=== PATIENT | female | born 1960 | race Caucasian/White ===

== ENCOUNTER 2017-10-18 23:04 | Emergency (ER) | payer OTHER ==
[2017-10-18 23:11] VITALS: PULSE 77; TEMP 98.7; BMI 23.6
[2017-10-18] MEDS ORDERED: DEXAMETHASONE SOD PHOSPHATE 10 MG/1 ML VIAL IM ONE (23:13)
[2017-10-18] MEDS ORDERED: DEXAMETHASONE SOD PHOSPHATE 10 MG/1 ML VIAL ONE (23:14)
--- NOTE | 2017-10-18 23:20 | PDOC ---
History of Present Illness - General Chief Complaint: Allergic Reaction Stated Complaint: ALLERGIC REACTION Time Seen by Provider: 10/18/17 23:12 - History of Present Illness Initial Comments: 10/19/17 20:41 while sitting on plane near dog, felt throat swelling up. took antihistamines without relief. no fevr/ chills. no uri symptoms pmh: allergies fhx: noncotnrib ros: reveiwed and otherwise neagtive o/e nad no rash mmm uvula mildly edematous no stridor, no wheeze a/p mild allg rxn corticosteroids antihistamines Past History - Past Medical History Allergies/Adverse Reactions: Allergies Allergy/AdvReac Type Severity Reaction Status Date / Time aspirin Allergy Severe Verified 10/18/17 23:05 leuprolide acetate Allergy Severe Verified 10/18/17 23:05 [From Lupron] NSAIDS (Non-Steroidal Allergy Severe Verified 10/18/17 23:05 Anti-Inflamma IV DYE Allergy Severe Uncoded 10/18/17 23:05 Home Medications: Ambulatory Orders Estradiol/Levonorgestrel [Climara Pro Patch] 1 each TD WEEKLY 01/20/14 Loratadine [Claritin -] 10 mg PO HS 01/20/14 COPD: No - Suicide/Smoking/Psychosocial Hx Smoking History: Never smoked Hx Alcohol Use: No Drug/Substance Use Hx: No Substance Use Type: None *Physical Exam - Vital Signs Last Vital Signs Temp Pulse Resp BP Pulse Ox 98.7 F 77 18 157/97 99 10/18/17 23:06 10/18/17 23:06 10/18/17 23:06 10/18/17 23:06 10/18/17 23:06 *DC/Admit/Observation/Transfer Diagnosis at time of Disposition: Allergic reaction Qualifiers: Encounter type: initial encounter Qualified Code(s): T78.40XA - Allergy, unspecified, initial encounter - Discharge Dispostion Disposition: HOME Condition at time of disposition: Good - Referrals - Patient Instructions Printed Discharge Instructions: DI for General Allergic Reactions - Post Discharge Activity
[2017-10-19 00:12] VITALS: BP 122/72
== END 2017-10-19 00:24 | disposition home or self-care (01) ==
LOC: FER 23:04
PROC: 3E023GC Introduction of Other Therapeutic Substance into Muscle, Percutaneous Approach (ICD-10-PCS; principal; 2017-10-18)
DX: T78.40XA Allergy, unspecified, initial encounter (principal)
CPT/HCPCS: 99282-25; J1100

== ENCOUNTER 2017-11-02 16:40 | Emergency (ER) | payer OTHER ==
[2017-11-02] MEDS ORDERED: methylPREDNISolone NA SUCC 40 MG/1 ML VIAL IVPUSH ONE (16:45)
--- NOTE | 2017-11-02 16:45 | PDOC ---
History of Present Illness - General History Source: Patient Exam Limitations: No Limitations - History of Present Illness Initial Comments: 11/02/17 16:57 The patient is a 57 year old female, with a significant past medical history of idiopathic anaphylaxis ([id number]), who presents to the emergency department with, an allergic reaction. She reports using her Epipen prior to arrival. This morning at 8:00 am she reports taking 10 mg of Prednisone, 20 mg of Pepcid , and Benadryl. At 1:00 pm she reports taking 5mg of Prednisone and 10 mg of Prednisone at 3:00 pm. She describes her symptoms as her palate shutting down. Her initial allergic reaction was after being around a dog, however, she reports the symptoms to be unlike her normal dog allergy. As per patient, she has had 4 allergic reactions within two weeks which she has had to go to the ED from unknown causes. She reports seeing both an ENT and supervisor pairing and inspecting this week. She denies recent fevers, chills, headache or dizziness. She denies recent nausea, vomit, diarrhea or constipation. She denies recent dysuria, frequency, urgency or hematuria. She denies recent chest pain or shortness of breath. <Manuel Ji - Last Filed: 11/02/17 17:22> <Ronnie Rockwell - Last Filed: 11/02/17 17:38> - General Chief Complaint: Allergic Reaction Stated Complaint: ALLERGIC REACTION Time Seen by Provider: 11/02/17 16:45 Past History <Manuel Ji - Last Filed: 11/02/17 17:22> - Past Medical History COPD: No - Suicide/Smoking/Psychosocial Hx Smoking History: Never smoked Hx Alcohol Use: No Drug/Substance Use Hx: No Substance Use Type: None <Ronnie Rockwell - Last Filed: 11/02/17 17:38> - Past Medical History Allergies/Adverse Reactions: Allergies Allergy/AdvReac Type Severity Reaction Status Date / Time aspirin Allergy Severe Verified 10/18/17 23:05 leuprolide acetate Allergy Severe Verified 10/18/17 23:05 [From Lupron] NSAIDS (Non-Steroidal Allergy Severe Verified 10/18/17 23:05 Anti-Inflamma IV DYE Allergy Severe Uncoded 10/18/17 23:05 Home Medications: Ambulatory Orders Loratadine [Claritin -] 10 mg PO HS 01/20/14 Albuterol Sulfate Inhaler - [Ventolin Hfa Inhaler -] 2 inh PO Q6H 11/02/17 Diphenhydramine HCl [Benadryl -] 25 mg PO BID 11/02/17 Diphenhydramine [Benadryl -] 50 mg PO ASDIR PRN 11/02/17 EPINEPHrine (EPI-PEN 0.3MG) [Epipen 0.3MG -] 0.3 mg IM ASDIR 11/02/17 Estrogens, Conjugated [Premarin] 0.3 mg TP WEEKLY 11/02/17 Famotidine [Pepcid] 40 mg PO DAILY 11/02/17 Nettle [place] 600 gm MC DAILY 11/02/17 Prednisone 10 mg PO ASDIR 11/02/17 Progesterone, Micronized [Progesterone] 100 mg PO DAILY 11/02/17 Quercetin Dihydrate 600 gm PO DAILY 11/02/17 Review of Systems - Review of Systems Able to Perform ROS?: Yes All Other Systems: Reviewed and Negative <Manuel Ji - Last Filed: 11/02/17 17:22> *Physical Exam - Physical Exam Comments: 11/02/17 16:59 + General Appearance: Yes: (+) Anxious. Appropriately Dressed, Nourished. No: Alcohol on Breath, Intoxicated, Cachetic, Obese, Thin, Other HEENT: positive: Normal ENT Inspection, Normal Voice, Pharynx Normal. negative : Pale Conjunctivae, Muffled/Hoarse voice, Hearing Decreased, Hearing Grossly Normal, Other Neck: positive: Trachea midline, Normal Thyroid, Supple. negative: Tender, Rigid, Carotid bruit, Decreased range of motion, Stridor, Lymphadenopathy (R), Lymphadenopathy (L), Rigidity, Tender lateral, Tender midline, Thyromegaly, Other Respiratory/Chest: positive: Lungs Clear, Normal Breath Sounds. negative: Respiratory Distress, Labored Respiration, Rapid RR, Decreased Breath Sounds, Paradoxal Breathing, Crackles, Rales, Rhonchi, Stridor, Wheezing, Dullness, Hyperresonant, Plerual Rub, Other Cardiovascular: positive: Regular Rate, Regular Rhythm, S1, S2. negative: Edema , JVD, Murmur, Bradycardia, Tachycardia, Diastolic Murmur, Systolic Murmur, Gallop/S3, Gallop/S4, Irregularly Irregular, Irregular, Other Integumentary: positive: Normal Color, Dry, Warm. negative: Cyanotic, Erythema , Jaundice, Mottled, Pale, Cold, Clammy, Diaphoresis, Moist, Swelling, Ecchymosis, Bruising, Other Neurologic: positive: Fully Oriented, Alert, Normal Mood/Affect, Normal Response. negative: Responsive, EOM Palsy, Facial Droop, Confused, Disoriented , Depressed Affect, Other <Manuel Ji - Last Filed: 11/02/17 17:22> Progress Note - Progress Note Progress Note: Pt having an allergic reaction, no rash. Speaking full sentences, took Epi pen at home Benadryl, SoluMedrol and Pepcid given. Patient is feeling much better. Will discharge home, has EpiPens at home. If worsen return to ER <Ronnie Rockwell - Last Filed: 11/02/17 17:38> *DC/Admit/Observation/Transfer - Attestations Scribe Attestion: 11/02/17 17:11 Documentation prepared by Manuel Ji, acting as faculty i on call medical assistant for Ronnie Rockwell MD. <Manuel Ji - Last Filed: 11/02/17 17:22> - Discharge Dispostion Admit: No <Ronnie Rockwell - Last Filed: 11/02/17 17:38> Diagnosis at time of Disposition: Allergic reaction Qualifiers: Encounter type: initial encounter Qualified Code(s): T78.40XA - Allergy, unspecified, initial encounter - Discharge Dispostion Disposition: HOME Condition at time of disposition: Good - Patient Instructions Printed Discharge Instructions: Anaphylaxis Additional Instructions: Continue current treatment If worsen return to ER
[2017-11-02] MEDS ORDERED: FAMOTIDINE IV 20 MG/12 ML VIAL IVPUSH ONE (16:47)
[2017-11-02 17:24] VITALS: TEMP 98.4; BMI 23.6
[2017-11-02 17:25] VITALS: BP 120/63; PULSE 75
== END 2017-11-02 18:47 | disposition home or self-care (01) ==
LOC: FER 16:40
PROC: 3E033GC Introduction of Other Therapeutic Substance into Peripheral Vein, Percutaneous Approach (ICD-10-PCS; principal; 2017-11-02)
DX: T78.40XA Allergy, unspecified, initial encounter (principal)
CPT/HCPCS: 99283-25

== ENCOUNTER 2017-11-03 00:05 | Emergency (ER) | payer OTHER ==
[2017-11-03 00:12] VITALS: BP 151/89; PULSE 93; TEMP 97.8; BMI 51.7
--- NOTE | 2017-11-03 00:35 | PDOC ---
History of Present Illness - General Chief Complaint: Allergic Reaction Stated Complaint: DIFFICULTY BREATHING Time Seen by Provider: 11/03/17 00:35 Past History - Past Medical History Allergies/Adverse Reactions: Allergies Allergy/AdvReac Type Severity Reaction Status Date / Time aspirin Allergy Severe Verified 11/03/17 00:07 leuprolide acetate Allergy Severe Verified 11/03/17 00:07 [From Lupron] NSAIDS (Non-Steroidal Allergy Severe Verified 11/03/17 00:07 Anti-Inflamma IV DYE Allergy Severe Uncoded 10/18/17 23:05 Home Medications: Ambulatory Orders Loratadine [Claritin -] 10 mg PO HS 01/20/14 Albuterol Sulfate Inhaler - [Ventolin Hfa Inhaler -] 2 inh PO Q6H 11/02/17 Diphenhydramine HCl [Benadryl -] 25 mg PO BID 11/02/17 Diphenhydramine [Benadryl -] 50 mg PO ASDIR PRN 11/02/17 EPINEPHrine (EPI-PEN 0.3MG) [Epipen 0.3MG -] 0.3 mg IM ASDIR 11/02/17 Estrogens, Conjugated [Premarin] 0.3 mg TP WEEKLY 11/02/17 Famotidine [Pepcid] 40 mg PO DAILY 11/02/17 Nettle [place] 600 gm MC DAILY 11/02/17 Prednisone 10 mg PO ASDIR 11/02/17 Progesterone, Micronized [Progesterone] 100 mg PO DAILY 11/02/17 Quercetin Dihydrate 600 gm PO DAILY 11/02/17 COPD: No - Suicide/Smoking/Psychosocial Hx Smoking History: Never smoked Have you smoked in the past 12 months: No Information on smoking cessation initiated: No Hx Alcohol Use: No Drug/Substance Use Hx: No Substance Use Type: None *Physical Exam - Vital Signs Last Vital Signs Temp Pulse Resp BP Pulse Ox 97.8 F 93 H 20 151/89 100 11/03/17 00:07 11/03/17 00:07 11/03/17 00:07 11/03/17 00:07 11/03/17 00:07 - Physical Exam General Appearance: Yes: Nourished, Appropriately Dressed. No: Apparent Distress HEENT: positive: EOMI, TK, Normal ENT Inspection, Symmetrical, TMs Normal, Pharynx Normal, Muffled/Hoarse voice Neck: positive: Trachea midline, Normal Thyroid, Supple Respiratory/Chest: positive: Lungs Clear, Normal Breath Sounds. negative: Respiratory Distress, Accessory Muscle Use Cardiovascular: positive: Regular Rhythm, Regular Rate, S1, S2 Gastrointestinal/Abdominal: positive: Normal Bowel Sounds, Tender, Flat, Soft, Organomegaly Musculoskeletal: positive: Normal Inspection. negative: CVA Tenderness Extremity: positive: Normal Capillary Refill, Normal Inspection, Normal Range of Motion Integumentary: positive: Normal Color, Dry, Warm Neurologic: positive: tone cabinet assembler II-XII NML intact, Fully Oriented, Alert, Normal Mood/ Affect, Normal Response, Motor Strength 5/5, Other (pt is slightly anxious.) ED Treatment Course - RADIOLOGY Radiology Studies Ordered: Category Date Time Status SOFT TISSUE NECK CT W/O CONTR [CT] Stat CT Scan 11/03/17 00:30 Ordered Medical Decision Making - Medical Decision Making 11/03/17 01:15 Pt comes with swelling in her throat. SHe states that she was here earlier in the day for "idiopathic angioedema" that is being treated with steroids at present 10-20mg prednisone daily. Despite this she had a feeling that her throat was closing today and she was in the ER and improved with benadryl and prednisone given in the ER. Pt took her epipen earlier today en route to here. Now she returns. She again used 25mg benadryl; 11/03/17 01:29 Patient Name: MILLIE WEBBER THIS IS A PRELIMINARY REPORT FROM [facility] DATE OF SERVICE: 2017-11-03 00:20:18 IMAGES: [id number] EXAM: CT NECK WITHOUT CONTRAST No abscess or focal fluid collection. No obvious mass, but evaluation limited by noncontrast technique. Unremarkable tonsillar fossa, epiglottis, thyroid gland, and parotid and submandibular glands. Visualized paranasal sinuses and mastoid air cells clear. Hemangioma T1. THIS DOCUMENT HAS BEEN ELECTRONICALLY SIGNED *DC/Admit/Observation/Transfer Diagnosis at time of Disposition: Sensation of swollen throat - Discharge Dispostion Disposition: HOME Condition at time of disposition: Stable Admit: No - Referrals - Patient Instructions Printed Discharge Instructions: Tips on Coping with Mouth, Gum, and Throat Problems Related to Radiation Th, DI for Angioedema, Nasal Filters May Improve Seasonal Allergy Symptoms - Post Discharge Activity
== END 2017-11-03 02:16 | disposition home or self-care (01) ==
LOC: FER 00:05
PROC: 3E033GC Introduction of Other Therapeutic Substance into Peripheral Vein, Percutaneous Approach (ICD-10-PCS; principal; 2017-11-03)
DX: R09.89 Other specified symptoms and signs involving the circulatory and respiratory systems (principal)
CPT/HCPCS: 70490-TC; 99281-25

== ENCOUNTER 2017-11-04 20:47 | Emergency (ER) | payer OTHER ==
[2017-11-04 21:06] VITALS: BP 119/73; PULSE 94; TEMP 98.2; BMI 23.5
--- NOTE | 2017-11-04 21:18 | PDOC ---
History of Present Illness - General History Source: Patient Exam Limitations: No Limitations - History of Present Illness Initial Comments: 11/04/17 21:33 The patient is a 57 year old female with a significant PMH of idiopathic anaphylaxis ([id number]) and fibromyalgia who presents to the emergency department with an allergic reaction. She reports using her Epipen prior to arrival. The patient states she ate salmon last night and felt like it was stuck in the back of the throat that resolved about 30 minutes later after burping. The patient notes she only ate soup, protein shakes, and water today as she felt anxious about experiencing this sensation again. The patient also reports taking Prednisone, Pepcid, and Benadryl with minimal relief. The patient notes she has been experiencing her palate was shutting down over the past few days but states that today she had the sensation there was 'something stuck in the back of her throat.' The patient also endorses nausea and itchiness to her palate. Her initial allergic reaction was on 10/18/17 after being near a dog but states her symptoms were unlike her typical drug allergy. Of note, the patient reports she has had 5 allergic reactions within two weeks which she has had to go to the ED. She also reports seeing an ENT 5 days ago who performed a laryngoscopy and told her she had some inflammation in the throat but could not determine the cause. The patient also states she saw an facility specialist yesterday. The patient denies chest pain, shortness of breath, headache and dizziness. Denies fever, chills, vomit, diarrhea and constipation. Denies dysuria, frequency, urgency and hematuria. Allergies: Aspirin, leuprolide acetate Past surgical history: None reported. Social history: No reported alcohol, drug or cigarette use. <Sirisha Sanders - Last Filed: 11/04/17 21:31> <Marina Angela - Last Filed: 11/05/17 01:31> - General Chief Complaint: Allergic Reaction Stated Complaint: ALLERGIC REACTION Time Seen by Provider: 11/04/17 21:18 Past History <Sirisha Sanders - Last Filed: 11/04/17 21:31> - Past Medical History COPD: No - Suicide/Smoking/Psychosocial Hx Smoking History: Never smoked Have you smoked in the past 12 months: No Hx Alcohol Use: No Drug/Substance Use Hx: No Substance Use Type: None <Marina Angela - Last Filed: 11/05/17 01:31> - Past Medical History Allergies/Adverse Reactions: Allergies Allergy/AdvReac Type Severity Reaction Status Date / Time aspirin Allergy Severe Verified 11/03/17 00:07 leuprolide acetate Allergy Severe Verified 11/03/17 00:07 [From Lupron] NSAIDS (Non-Steroidal Allergy Severe Verified 11/03/17 00:07 Anti-Inflamma IV DYE Allergy Severe Uncoded 10/18/17 23:05 Home Medications: Ambulatory Orders Loratadine [Claritin -] 10 mg PO HS 01/20/14 Albuterol Sulfate Inhaler - [Ventolin Hfa Inhaler -] 2 inh PO Q6H 11/02/17 Diphenhydramine HCl [Benadryl -] 25 mg PO BID 11/02/17 Diphenhydramine [Benadryl -] 50 mg PO ASDIR PRN 11/02/17 EPINEPHrine (EPI-PEN 0.3MG) [Epipen 0.3MG -] 0.3 mg IM ASDIR 11/02/17 Estrogens, Conjugated [Premarin] 0.3 mg TP WEEKLY 11/02/17 Famotidine [Pepcid] 40 mg PO DAILY 11/02/17 Nettle [place] 600 gm MC DAILY 11/02/17 Prednisone 10 mg PO ASDIR 11/02/17 Progesterone, Micronized [Progesterone] 100 mg PO DAILY 11/02/17 Quercetin Dihydrate 600 gm PO DAILY 11/02/17 Montelukast Na [Singulair -] 10 mg PO HS #30 tablet 11/03/17 Review of Systems - Review of Systems Comments:: 11/04/17 21:32 CONSTITUTIONAL: Absent: fever, no chills, no fatigue EYES: Absent: visual changes ENT: Absent: ear pain, no sore throat Present: allergic reaction CARDIOVASCULAR: Absent: chest pain, no palpitations RESPIRATORY: Absent: cough, no SOB GI: Absent: abdominal pain, no nausea, no vomiting, no constipation, no diarrhea GENITOURINARY: Absent: dysuria, no frequency, no hematuria MUSKULOSKELETAL: Absent: back pain, no arthralgia, no myalgia SKIN: Absent: rash NEURO: Absent: headache <Sirisha Sanders - Last Filed: 11/04/17 21:31> *Physical Exam - Vital Signs Last Vital Signs Temp Pulse Resp BP Pulse Ox 98.2 F 94 H 20 119/73 100 11/04/17 20:48 11/04/17 20:48 11/04/17 20:48 11/04/17 20:48 11/04/17 20:48 - Physical Exam Comments: 11/04/17 21:31 GENERAL: (+) Anxious appearing. Well-appearing, well-nourished. HEENT: (+) No uvular swelling; uvula is midline. Airway is grossly patent. No tongue or lip swelling. Normocephalic, atraumatic. PERRL, EOM intact. CARDIOVASCULAR: Normal S1, S2. Regular rate and rhythm. PULMONARY: No stridor, No wheezing, no rhonchi, no rales. Clear to auscultation bilaterally. ABDOMEN: Soft, non-distended, non-tender. EXTREMITIES: Normal ROM in all four extremities. No gross deformities. SKIN: Warm, dry. No rash NEUROLOGICAL: No focal neurological deficits. Mildly anxious appearing. <Sirisha Sanders - Last Filed: 11/04/17 21:31> - Vital Signs Last Vital Signs Temp Pulse Resp BP Pulse Ox 98.2 F 94 H 20 119/73 100 11/04/17 20:48 11/04/17 20:48 11/04/17 20:48 11/04/17 20:48 11/04/17 20:48 <Marina Angela - Last Filed: 11/05/17 01:31> Medical Decision Making - Medical Decision Making 11/05/17 01:23 Pt with sxs of a sensation in the back of her throat and intermittent air hunger. She has had several ER visits since 09/17 with same sxs, last visit was 2d ago - had a CT neck soft tissue which was normal. I gave pepcid, decadron, benadryl in the ER and observed her for 4+ hrs. Pt now feeling fine, sxs have resolved. I spoke to pt's PMD, Dr. Martino [phone]. Will see pt soon (pt to call office tomorrow for appt) and be scheduled for outpatient GI f/u for possible swallow studies/endoscopy. To dc pt now in much improved condition. <Marina Angela - Last Filed: 11/05/17 01:31> *DC/Admit/Observation/Transfer - Attestations Scribe Attestion: 11/04/17 21:31 Documentation prepared by Sirisha Sanders, acting as biomedical specialist for Emergency Dept,Physician, . <Sirisha Sanders - Last Filed: 11/04/17 21:31> - Discharge Dispostion Admit: No <Marina Angela - Last Filed: 11/05/17 01:31> Diagnosis at time of Disposition: Throat discomfort, Sensation of swollen throat - Discharge Dispostion Disposition: HOME Condition at time of disposition: Improved - Patient Instructions Additional Instructions: You were seen in the ER with a sensation of fullness in your throat. You were given decadron 10mg PO, benadryl 50mg IM and pepcid 20mg PO. Please follow up with Dr. Martino, you may benefit from outpatient follow up with a guest house manager. Return if your symptoms worsen.
[2017-11-04] MEDS ORDERED: FAMOTIDINE IV 20 MG/12 ML VIAL IVPUSH ONE (21:44)
[2017-11-04] MEDS ORDERED: DEXAMETHASONE SOD PHOSPHATE 20 MG/5 ML VIAL IVPB ONE (21:44)
[2017-11-04] MEDS ORDERED: FAMOTIDINE 20 MG TABLET ONE (22:41)
[2017-11-04] MEDS ORDERED: DEXAMETHASONE 4 MG TABLET (FP) ONE (22:42)
[2017-11-04] MEDS ORDERED: DEXAMETHASONE SOD PHOSPHATE 10 MG/1 ML VIAL IM ONE (23:17)
[2017-11-04] MEDS ORDERED: FAMOTIDINE 20 MG TABLET PO ONE (23:18)
[2017-11-04] MEDS ORDERED: DEXAMETHASONE 4 MG TABLET (FP) PO ONE (23:19)
== END 2017-11-05 01:37 | disposition home or self-care (01) ==
LOC: FER 20:47
PROC: 3E023GC Introduction of Other Therapeutic Substance into Muscle, Percutaneous Approach (ICD-10-PCS; principal; 2017-11-04)
DX: R07.0 Pain in throat (principal); R09.89 Other specified symptoms and signs involving the circulatory and respiratory systems; M79.7 Fibromyalgia
CPT/HCPCS: 99281-25

== ENCOUNTER 2017-11-11 23:05 | Emergency (ER) | payer OTHER ==
--- NOTE | 2017-11-11 23:15 | PDOC ---
History of Present Illness - General Chief Complaint: Allergic Reaction Stated Complaint: STATES SHE IS HAVING AN ALLERGIC REACTION Time Seen by Provider: 11/11/17 23:14 History Source: Patient Exam Limitations: No Limitations - History of Present Illness Initial Comments: 11/11/17 23:39 This is a 57-year-old female who comes in complaining of an acute ALLERGIC reaction. Patient said it feels like her tongue is swollen. Patient has had 5 visits for similar reactions over the last approximately 2 weeks. Patient has taken multiple doses of Benadryl has been on steroids continuously in moderate to high doses for the last month and has used her EpiPen multiple times over the course of the last period however on review and evaluation of her ER visits it appears that she is at the most having a mild ALLERGIC reaction. Here in the emergency room patient's pulse ox was 100% her blood pressure was normal and there was no visible evidence of an acute ALLERGIC reaction in spite of that she had taken over 100 mg of Benadryl 20 mg of prednisone and an EpiPen. Patient had an endoscopy yesterday to rule out eosinophilic esophagitis and nyla. Patient was told that she may have both. However biopsies were taken and she was not started on medication. Patient has been to an ENT has been scoped with no abnormalities found. Patient has seen an miller apprentice has been ALLERGY tested. PAST MED over theICAL HISTORY: no significant history PAST SURGICAL HISTORY: no significant history FAMILY HISTORY: no pertinant history SOCIAL HISTORY: Pt lives with family and is employed. MEDICATIONS: reviewed ALLERGIES: As per nursing notes Review of Systems General: No fevers or chills, no weakness, no weight loss HEENT: No change in vision. No sore throat,. No ear pain CardioVascular: No chest pain or shortness of breath Respiratory:No cough, or wheezing. Gastrointestinal: no nausea, vomitting, diarrhea or constipation, No rectal bleeding Genitourinary: No dysuria, hematuria, or frequency Musculoskeletal: No joint or muscle pain or swelling Neurologic: No headache, vertigo, dizziness or loss of consciousness Psychiatric: nor depression Skin: No rashes or easy bruising Endocrine: no increased thirst or abnormal weight change Allergic: no skin or latex allergy All other systems reviewed and normal Exam: General: Well-nourished well-developed individual, no acute distress HEENT: Throat: Normal, tonsils normal, no erythema or exudate Neck: Supple, no meningeal signs, no lymphadenopathy Eyes::Pupils equal reactive and round, extraocular motion intact Chest: Nontender to palpation Cardiac: S1-S2 normal, regular rate and rhythm, no murmurs rubs or gallops Respiratory: Lungs clear to auscultation bilateral Abdomen: Soft, nondistended, normal bowel sounds, nontender to palpation diffusely Extremities: Warm, dry, no cyanosis, clubbing, or edema Skin: No rashes Neuro: Alert and oriented x3, CN II - XII intact, nonfocal exam with normal strength, normal sensation, normal reflexes, normal gait, Psych: Normal mood and affect Assessment and plan: This is a 57-year-old female who comes in with a perception of a acute ALLERGIC reaction. However in the emergency room on exam I see no evidence of an acute ALLERGIC reaction. She has no angioedema, her lungs are clear and there is no rashes. Her vitals are stable her oxygen level is 100%. Patient was observed in the emergency room for approximately 45 minutes with no change in her symptoms. Patient was discharged home and told to follow-up with her miller apprentice and her primary care doctor Past History - Past Medical History Allergies/Adverse Reactions: Allergies Allergy/AdvReac Type Severity Reaction Status Date / Time aspirin Allergy Severe Verified 11/11/17 23:14 leuprolide acetate Allergy Severe Verified 11/11/17 23:14 [From Lupron] NSAIDS (Non-Steroidal Allergy Severe Verified 11/11/17 23:14 Anti-Inflamma IV DYE Allergy Severe Uncoded 10/18/17 23:05 Home Medications: Ambulatory Orders Loratadine [Claritin -] 10 mg PO HS 01/20/14 Diphenhydramine HCl [Benadryl -] 25 mg PO BID 11/02/17 Diphenhydramine [Benadryl -] 50 mg PO ASDIR PRN 11/02/17 EPINEPHrine (EPI-PEN 0.3MG) [Epipen 0.3MG -] 0.3 mg IM ASDIR 11/02/17 Estrogens, Conjugated [Premarin] 0.3 mg TP WEEKLY 11/02/17 Famotidine [Pepcid] 40 mg PO DAILY 11/02/17 Nettle [place] 600 gm MC DAILY 11/02/17 Prednisone 30 mg PO ASDIR 11/02/17 Progesterone, Micronized [Progesterone] 100 mg PO DAILY 11/02/17 Quercetin Dihydrate 600 gm PO DAILY 11/02/17 COPD: No - Suicide/Smoking/Psychosocial Hx Smoking History: Never smoked Have you smoked in the past 12 months: No Hx Alcohol Use: No Drug/Substance Use Hx: No Substance Use Type: None *DC/Admit/Observation/Transfer Diagnosis at time of Disposition: Multiple allergies - Discharge Dispostion Disposition: HOME Condition at time of disposition: Stable Admit: No - Referrals - Patient Instructions Additional Instructions: Return to the emergency department immediately with ANY new, persistent or worsening symptoms. Continue any medications as previously prescribed by your physician. You should follow up with your primary doctor as soon as possible regarding today's emergency department visit. . Please make sure your doctor reviews the results of your emergency evaluation. Thank you for coming to the Emergency Department today for your care. Please note that your evaluation is INCOMPLETE until you follow-up with your doctor. - Post Discharge Activity
[2017-11-11 23:29] VITALS: TEMP 97; BMI 23.3
[2017-11-11 23:53] VITALS: BP 113/64; PULSE 68
== END 2017-11-12 00:07 | disposition home or self-care (01) ==
LOC: FER 23:05
DX: T78.49XA Other allergy, initial encounter (principal)
CPT/HCPCS: 99281-25

== ENCOUNTER 2021-03-24 15:55 | Emergency (ER) | payer OTHER ==
[2021-03-24 16:23] VITALS: TEMP 98.1; BMI 26.6
[2021-03-24] MEDS ORDERED: FAMOTIDINE 20 MG/50 ML IVPB 20 MG/50 ML MG IVPB ONE ×2 (16:31→16:45)
[2021-03-24] MEDS ORDERED: SODIUM CHLORIDE 0.9% 1000 ML INFUS.BAG IV ONE (16:31)
[2021-03-24] MEDS ORDERED: methylPREDNISolone NA SUCC 125 MG/2 ML VIAL IVPB ONE (16:31)
[2021-03-24] MEDS ORDERED: methylPREDNISolone NA SUCC 125 MG/2 ML VIAL ONE (16:45)
[2021-03-24 17:02] LABS: BASO % 4.5 % (0-2.0); HEMATOCRIT 38.3 % (32.4-45.2); HEMOGLOBIN 13.5 GM/dl (10.7-15.3); MCH 32.5 pg (25.7-33.7); MCHC 35.2 g/dl (32.0-36.0); MEAN CELL VOLUME 92.3 fl (80-96); MEAN PLT VOLUME 7.2 fl (7.5-11.1); MONO % 1.9 % (3.8-10.2); NEUT % 86.6 % (42.8-82.8); PLATELET COUNT 439 10^3/uL (134-434); RBC 4.15 M/mm3 (3.60-5.2); RDW 12.5 % (11.6-15.6)
[2021-03-24 17:04] LABS: ALBUMIN 4.1 g/dl (3.4-5.0); ALK PHOS 84 U/L (45-117); ANION GAP 13 MMOL/L (8-16); BILIRUBIN,TOTAL 0.9 mg/dl (0.2-1); CALCIUM 9.6 mg/dl (8.5-10); CHLORIDE 99 mmol/L (98-107); CO2 25 mmol/L (21-32); CREATININE 1.1 mg/dl (0.55-1.3); GLUCOSE,RANDOM 129 mg/dl (74-106); SGOT/AST 31 U/L (15-37); SGPT/ALT 39 U/L (13-61); SODIUM 137 mmol/L (136-145); TOT PROT 6.7 g/dl (6.4-8.2)
[2021-03-24 17:18] LABS: ACTIVATED PTT 24.5 SECONDS (25.2-36.5); INR 0.97 (0.82-1.09); PROTHROMBIN TIME (PATIENT) 10.9 SEC (10.2-13.0)
[2021-03-24 19:09] LABS: EPITHELIAL CELLS FEW /hpf
[2021-03-24 19:36] VITALS: BP 142/92; PULSE 87
== END 2021-03-24 20:21 | disposition home or self-care (01) ==
LOC: FER 15:55
PROC: 3E033GC Introduction of Other Therapeutic Substance into Peripheral Vein, Percutaneous Approach (ICD-10-PCS; principal; 2021-03-24)
PROC: 3E033GC Introduction of Other Therapeutic Substance into Peripheral Vein, Percutaneous Approach (ICD-10-PCS; 2021-03-24)
PROC: 3E033GC Introduction of Other Therapeutic Substance into Peripheral Vein, Percutaneous Approach (ICD-10-PCS; 2021-03-24)
DX: D89.40 Mast cell activation, unspecified (principal); R55 Syncope and collapse
CPT/HCPCS: 36415; 71045-TC-FY; 80053; 81003; 81015; 82550; 82553; 83520; 84484; 85025; 85610; 85730; 87086; 93005; 99285-25

== ENCOUNTER 2021-05-01 03:33 | Emergency (ER) | payer OTHER ==
[2021-05-01] MEDS ORDERED: methylPREDNISolone NA SUCC 125 MG/2 ML VIAL ONE (03:38)
[2021-05-01 03:54] VITALS: TEMP 97.9; BMI 27.1
[2021-05-01] MEDS: methylPREDNISolone NA SUCC 125 MG/2 ML VIAL IVPB ONE ×2 (03:54→03:58)
[2021-05-01] MEDS ORDERED: methylPREDNISolone NA SUCC 125 MG/2 ML VIAL IVPUSH ONE (03:57)
[2021-05-01 07:29] VITALS: BP 147/83; PULSE 92
== END 2021-05-01 07:32 | disposition home or self-care (01) ==
LOC: FER 03:33
PROC: 3E033GC Introduction of Other Therapeutic Substance into Peripheral Vein, Percutaneous Approach (ICD-10-PCS; principal; 2021-05-01)
DX: T78.40XA Allergy, unspecified, initial encounter (principal)
CPT/HCPCS: 99284-25

== ENCOUNTER 2021-06-02 10:37 | Emergency (ER) | payer OTHER ==
[2021-06-02 10:59] VITALS: BP 155/97; PULSE 89; TEMP 98.9; BMI 27.4
[2021-06-02] MEDS ORDERED: METOCLOPRAMIDE HCL INJECTION 10 MG/2 ML VIAL IVPUSH ONE (11:32)
[2021-06-02] MEDS ORDERED: LACTATED RINGERS SOLUTION 1000 ML INFUS.BAG IV ONE (11:33)
[2021-06-02] MEDS ORDERED: METOCLOPRAMIDE HCL INJECTION 10 MG/2 ML VIAL ONE (11:36)
[2021-06-02 12:29] LABS: ACTIVATED PTT 23.4 SECONDS (25.2-36.5)
[2021-06-02 12:33] LABS: INR 0.97 (0.82-1.09); PROTHROMBIN TIME (PATIENT) 10.9 SEC (10.2-13.0)
[2021-06-02 12:35] LABS: ALBUMIN 3.9 g/dl (3.4-5.0); ALK PHOS 101 U/L (45-117); ANION GAP 14 MMOL/L (8-16); BILIRUBIN,TOTAL 0.8 mg/dl (0.2-1); CALCIUM 9.8 mg/dl (8.5-10); CHLORIDE 97 mmol/L (98-107); CO2 27 mmol/L (21-32); CREATININE 0.8 mg/dl (0.55-1.3); GLUCOSE,RANDOM 76 mg/dl (74-106); SGOT/AST 32 U/L (15-37); SGPT/ALT 43 U/L (13-61); SODIUM 138 mmol/L (136-145); TOT PROT 6.6 g/dl (6.4-8.2)
[2021-06-02 13:44] LABS: HEMATOCRIT 39.2 % (32.4-45.2); HEMOGLOBIN 13.5 GM/dL (10.7-15.3); MCHC 34.3 g/dl (32.0-36.0); MEAN CELL VOLUME 93.3 fl (80-96); PLATELET COUNT 436 10^3/uL (134-434); RDW 14.9 % (11.6-15.6); WHITE BLOOD COUNT 13.6 K/mm3 (4.0-10.0)
[2021-06-02] MEDS ORDERED: MAGNESIUM SULF 50% (8.12 MEQ/2 ML-1 GM VIAL) IVPB ONE (14:28)
[2021-06-02] MEDS ORDERED: MAGNESIUM 1GM/D5W - 1 GM/100 ML IVPB IVPB ONE (15:07)
[2021-06-02 15:14] LABS: ANISOCYTOSIS 1+; MACROCYTOSIS 0; PLATELET ESTIMATE INCREASED
[2021-06-02] MEDS ORDERED: diphenhydrAMINE HCL 25 MG CAPSULE (FP) PO ONE (16:05)
[2021-06-02] MEDS ORDERED: diphenhydrAMINE HCL 50 MG CAPSULE ONE (16:14)
== END 2021-06-02 16:26 | disposition home or self-care (01) ==
LOC: FER 10:37
PROC: 3E033NZ Introduction of Analgesics, Hypnotics, Sedatives into Peripheral Vein, Percutaneous Approach (ICD-10-PCS; principal; 2021-06-02)
PROC: 3E033GC Introduction of Other Therapeutic Substance into Peripheral Vein, Percutaneous Approach (ICD-10-PCS; 2021-06-02)
PROC: 3E033GC Introduction of Other Therapeutic Substance into Peripheral Vein, Percutaneous Approach (ICD-10-PCS; 2021-06-02)
DX: R51.9 Headache, unspecified (principal)
CPT/HCPCS: 36415; 70450-TC; 71046-TC-FY; 80053; 82550; 83735; 84484; 85025; 85610; 85730; 86850; 86900; 86901; 93005; 99285-25; C9803; U0003; U0005

== ENCOUNTER 2021-09-14 13:56 | Emergency (ER) | payer OTHER ==
[2021-09-14 14:27] VITALS: BP 144/80; PULSE 94; TEMP 98.6; BMI 27.4
== END 2021-09-14 15:27 | disposition home or self-care (01) ==
LOC: FER 13:56
DX: S92.354A Nondisplaced fracture of fifth metatarsal bone, right foot, initial encounter for closed fracture (principal)
CPT/HCPCS: 73630-TC-RT-FY; 99284-25

== ENCOUNTER 2021-10-07 11:35 | Emergency (ER) | payer OTHER ==
[2021-10-07 11:50] VITALS: TEMP 98.9; BMI 26.9
[2021-10-07] MEDS ORDERED: METOCLOPRAMIDE HCL INJECTION 10 MG/2 ML VIAL IVPUSH ONE (12:31)
[2021-10-07] MEDS ORDERED: SODIUM CHLORIDE 0.9% 1000 ML INFUS.BAG IV ONE ×2 (12:31→13:36)
[2021-10-07] MEDS ORDERED: PANTOPRAZOLE SODIUM 40 MG VIAL IVPUSH ONE (12:31)
[2021-10-07] MEDS ORDERED: PANTOPRAZOLE SODIUM 40 MG VIAL ONE (12:47)
[2021-10-07] MEDS ORDERED: METOCLOPRAMIDE HCL INJECTION 10 MG/2 ML VIAL ONE (12:47)
[2021-10-07 13:09] LABS: INR 1.12 (0.83-1.09); PROTHROMBIN TIME (PATIENT) 12.4 SEC (9.7-13.0)
[2021-10-07 13:27] LABS: ALBUMIN 3.8 g/dl (3.4-5.0); CALCIUM 10.3 mg/dl (8.5-10); CREATININE 0.8 mg/dl (0.55-1.3); TOT PROT 6.1 g/dl (6.4-8.2)
[2021-10-07 13:48] LABS: BASO % 0.6 % (0-2.0); EOS % 0.3 % (0-4.5); HEMATOCRIT 41.7 % (32.4-45.2); HEMOGLOBIN 13.8 GM/dL (10.7-15.3); LYMPH % 17.1 % (8-40); MCH 30.4 pg (25.7-33.7); MCHC 33.1 g/dl (32.0-36.0); MEAN PLT VOLUME 7.3 fl (7.5-11.1); MONO % 7.6 % (3.8-10.2); NEUT % 74.4 % (42.8-82.8); PLATELET COUNT 442 10^3/uL (134-434); RBC 4.53 M/mm3 (3.60-5.2); RDW 14.4 % (11.6-15.6); WHITE BLOOD COUNT 9.9 K/mm3 (4.0-10.0)
[2021-10-07] MEDS ORDERED: MAGNESIUM SULF 50% (8.12 MEQ/2 ML-1 GM VIAL) IVPB ONE (13:59)
[2021-10-07] MEDS ORDERED: ONDANSETRON 4 MG/2 ML VIAL IVPUSH ONE (13:59)
[2021-10-07] MEDS ORDERED: ONDANSETRON 4 MG/2 ML VIAL ONE (14:01)
[2021-10-07] MEDS ORDERED: MAGNESIUM 1GM/D5W - 1 GM/100 ML IVPB IVPB ONE (14:01)
[2021-10-07 15:34] VITALS: BP 124/68; PULSE 89
== END 2021-10-07 15:33 | disposition home or self-care (01) ==
LOC: FER 11:35
PROC: 3E033GC Introduction of Other Therapeutic Substance into Peripheral Vein, Percutaneous Approach (ICD-10-PCS; principal; 2021-10-07)
DX: R51.9 Headache, unspecified (principal); R11.2 Nausea with vomiting, unspecified
CPT/HCPCS: 36415; 80053; 82272; 85025; 85610; 85730; 86850; 86900; 86901; 99284-25; C9803; U0003; U0005

== ENCOUNTER 2021-12-01 06:23 | Emergency (ER) | payer OTHER ==
[2021-12-01 06:33] VITALS: BMI 26.9
[2021-12-01] MEDS ORDERED: METOCLOPRAMIDE HCL INJECTION 10 MG/2 ML VIAL IVPB ONE (06:47)
[2021-12-01] MEDS ORDERED: SODIUM CHLORIDE 1,000 ML IV STA (06:47)
[2021-12-01] MEDS ORDERED: METOCLOPRAMIDE HCL INJECTION 10 MG/2 ML VIAL ONE (06:52)
[2021-12-01] MEDS ORDERED: MAGNESIUM 1GM/D5W - 1 GM/100 ML IVPB IVPB ONE ×2 (08:45→12:44)
[2021-12-01 09:03] LABS: EOS % 0.5 % (0-4.5); HEMATOCRIT 40.7 % (32.4-45.2); LYMPH % 19.1 % (8-40); MCH 30.8 pg (25.7-33.7); MCHC 34.4 g/dl (32.0-36.0); MEAN CELL VOLUME 89.5 fl (80-96); MEAN PLT VOLUME 7.2 fl (7.5-11.1); MONO % 6.5 % (3.8-10.2); NEUT % 72.9 % (42.8-82.8); PLATELET COUNT 413 10^3/uL (134-434); RBC 4.54 M/mm3 (3.60-5.2); RDW 13.5 % (11.6-15.6); WHITE BLOOD COUNT 11.7 K/mm3 (4.0-10.0)
[2021-12-01 09:15] LABS: CALCIUM 9.9 mg/dL (8.5-10.1)
[2021-12-01 09:16] LABS: ALBUMIN 3.8 g/dl (3.4-5.0)
[2021-12-01 09:19] LABS: CREATININE 0.9 mg/dL (0.55-1.3)
[2021-12-01 09:20] LABS: BILIRUBIN,TOTAL 0.5 mg/dL (0.2-1); TOT PROT 7.1 g/dl (6.4-8.2)
[2021-12-01] MEDS ORDERED: DEXAMETHASONE SOD PHOSPHATE 20 MG/5 ML VIAL IVPB ONE (10:38)
[2021-12-01] MEDS ORDERED: DEXAMETHASONE SOD PHOSPHATE 4 MG/1 ML VIAL ONE (10:41)
[2021-12-01] MEDS ORDERED: ONDANSETRON 4 MG/2 ML VIAL IVPB ONE (11:33)
[2021-12-01] MEDS ORDERED: diazePAM CARPU-JECT 10 MG/2 ML DISP.SYRIN IVPUSH ONE (11:37)
[2021-12-01] MEDS ORDERED: MAGNESIUM SULF 50% (8.12 MEQ/2 ML-1 GM VIAL) IVPB ONE (11:38)
[2021-12-01] MEDS ORDERED: SODIUM CHLORIDE 0.9% 500 ML INFUS.BAG IV ONE (11:39)
[2021-12-01 12:14] VITALS: BP 145/73; PULSE 105; TEMP 99.4
[2021-12-01] MEDS ORDERED: ONDANSETRON 4 MG/2 ML VIAL ONE (12:14)
== END 2021-12-01 13:57 | disposition home or self-care (01) ==
LOC: FER 06:23
PROC: 3E033GC Introduction of Other Therapeutic Substance into Peripheral Vein, Percutaneous Approach (ICD-10-PCS; principal; 2021-12-01)
PROC: 3E033GC Introduction of Other Therapeutic Substance into Peripheral Vein, Percutaneous Approach (ICD-10-PCS; 2021-12-01)
PROC: 3E033GC Introduction of Other Therapeutic Substance into Peripheral Vein, Percutaneous Approach (ICD-10-PCS; 2021-12-01)
PROC: 3E033GC Introduction of Other Therapeutic Substance into Peripheral Vein, Percutaneous Approach (ICD-10-PCS; 2021-12-01)
PROC: 3E0337Z Introduction of Electrolytic and Water Balance Substance into Peripheral Vein, Percutaneous Approach (ICD-10-PCS; 2021-12-01)
DX: R51.9 Headache, unspecified (principal)
CPT/HCPCS: 36415; 80053; 85025; 93005; 99284-25

== ENCOUNTER 2021-12-02 00:30 | Emergency (ER) | payer OTHER ==
[2021-12-02 00:35] VITALS: BP 148/75; PULSE 101; TEMP 98.1; BMI 26.9
== END 2021-12-02 03:32 | disposition home or self-care (01) ==
LOC: FER 00:30 → SUPCPDRO 00:30 → FER 03:32
DX: R55 Syncope and collapse (principal)
CPT/HCPCS: 70450-TC; 99284-25

== ENCOUNTER 2022-04-03 07:38 | Emergency (ER) | payer OTHER ==
[2022-04-03 07:43] VITALS: BP 124/106; PULSE 93; RESP 20; TEMP 98.9; BMI 30.3
[2022-04-03] MEDS ORDERED: MAGNESIUM SULF 50% (8.12 MEQ/2 ML-1 GM VIAL) IVPB ONE ×2 (08:01→10:52)
[2022-04-03] MEDS ORDERED: METOCLOPRAMIDE HCL INJECTION 10 MG/2 ML VIAL IVPB ONE (08:01)
[2022-04-03] MEDS ORDERED: DEXAMETHASONE SOD PHOSPHATE 20 MG/5 ML VIAL IVPB ONE (08:01)
[2022-04-03] MEDS ORDERED: SODIUM CHLORIDE 0.9% 500 ML INFUS.BAG IV ONE (08:02)
[2022-04-03] MEDS ORDERED: DEXAMETHASONE SOD PHOSPHATE 10 MG/1 ML VIAL ONE (08:36)
[2022-04-03] MEDS ORDERED: MAGNESIUM SULF 50% (8.12 MEQ/2 ML-1 GM VIAL) ONE ×2 (08:36→10:54)
[2022-04-03 09:03] LABS: HEMATOCRIT 38.8 % (32.4-45.2); HEMOGLOBIN 13.3 G/dL (10.7-15.3); MCH 31.1 pg (25.7-33.7); MCHC 34.3 g/dl (32.0-36.0); MEAN CELL VOLUME 90.6 fl (80-96); MEAN PLT VOLUME 7.2 fl (7.5-11.1); PLATELET COUNT 417.7 10^3/uL (134-434); RBC 4.28 10^6/uL (3.60-5.2); RDW 14.1 % (11.6-15.6); WHITE BLOOD COUNT 7.4 10^3/uL (4.0-10.8)
[2022-04-03 09:11] LABS: ALBUMIN 3.6 g/dl (3.4-5.0); BILIRUBIN,TOTAL 0.9 mg/dl (0.2-1); CALCIUM 10.1 mg/dl (8.5-10); CREATININE 0.8 mg/dl (0.55-1.3); TOT PROT 6.7 g/dl (6.4-8.2)
[2022-04-03] MEDS ORDERED: METOCLOPRAMIDE HCL INJECTION 10 MG/2 ML VIAL ONE (10:05)
== END 2022-04-03 12:16 | disposition home or self-care (01) ==
LOC: FER 07:38
PROC: 3E033GC Introduction of Other Therapeutic Substance into Peripheral Vein, Percutaneous Approach (ICD-10-PCS; principal; 2022-04-03)
DX: G43.909 Migraine, unspecified, not intractable, without status migrainosus (principal)
CPT/HCPCS: 36415; 80053; 85027; 93005; 99284-25